=== PATIENT | male | born 1965 | race Caucasian/White ===

== ENCOUNTER 2017-11-12 05:54 | Day surgery (SDC) | payer BC, OTHER ==
[2017-11-03 12:45] VITALS: BMI 23.7
[2017-11-12] MEDS ORDERED: MIDAZOLAM HCL 2 MG/2 ML SINGLE DOSE VIAL ONE (07:09)
[2017-11-12] MEDS ORDERED: DEXAMETHASONE SOD PHOSPHATE/PF 10 MG/ML SDV ONE (07:10)
[2017-11-12] MEDS ORDERED: ROPIVACAINE HCL 0.5% 30ML VIAL ONE (07:10)
--- NOTE | 2017-11-12 07:17 | HP ---
History & Physical Update - History History: No Change - Physical Physical: No Change - Assessment Assessment: No Change - Plan Plan: No Change (full H&P in chart and dated from Dr. Carpio on 10/26/2017)
[2017-11-12] MEDS ORDERED: ceFAZolin SODIUM 1 GM VIAL ONE (07:57)
[2017-11-12] MEDS ORDERED: PROPOFOL 20 ML ONE ×4 (07:58→09:09)
[2017-11-12] MEDS ORDERED: BUPIVACAINE HCL/EPINEPHRINE/PF 30 ML VIAL IJ ONE (08:12)
[2017-11-12] MEDS ORDERED: EPINEPHrine 1:1,000 1 MG/1 ML - 30ML VIAL (INJECTION) ONE (08:30)
[2017-11-12] MEDS ORDERED: oxyCODONE HCL 5 MG TABLET PO PRN ×3 (09:00→09:48)
[2017-11-12] MEDS ORDERED: LACTATED RINGERS SOLUTION 1,000 ML IV SCH (09:00)
[2017-11-12] MEDS ORDERED: ONDANSETRON 4 MG/2 ML VIAL IVPUSH PRN (09:00)
[2017-11-12] MEDS ORDERED: oxyCODONE HCL 10 MG SUSTAINED ACTING TABLET PO ONE (09:48)
--- NOTE | 2017-11-12 09:53 | OP ---
Operative Note - Note: Operative Date: 11/12/17 Pre-Operative Diagnosis: Left Shoulder SLAP lesion, biceps disease, rotator cuff disease Operation: LSA, debridement, open biceps tenodesis Post-Operative Diagnosis: Same as Pre-op Surgeon: Randall Gutierres Anesthesiologist/MULTIMEDIA DESIGNER: Aníbal Bedoya Anesthesia: General Operative Report Dictated: Yes
--- NOTE | 2017-11-12 09:53 | DS ---
Physical Examination Vital Signs: Vital Signs Temperature 97.9 F 11/12/17 06:33 Pulse Rate 78 11/12/17 06:33 Respiratory Rate 16 11/12/17 06:33 Blood Pressure 140/79 11/12/17 06:33 O2 Sat by Pulse Oximetry (%) 100 11/12/17 06:33 Discharge Summary Reason For Visit: LABRAL TEAR, PARTIAL ROTATOR CUFF TEAR, BURSITIS Condition: Good - Instructions Diet, Activity, Other Instructions: Post Operative Instructions: Shoulder Arthroscopy Dr Randall Gutierres 1. Pain following a Shoulder Arthroscopy is variable and can be significant. Some patients will have more pain than others. You have been provided with a prescription for medication that contains a narcotic. You are not allowed to drive while on this medication. Feel free to take medications such as Ibuprofen or Naprosyn in addition to the pain medicine if you do not have any problems with the NSAID class of medications. Please take ASPIRIN 81 mg twice a day for one week to decrease risk of blood clots. 2. Apply ice to the shoulder for 15 minutes every hour. You may continue this for as many days as necessary. 3. You may find sleeping on an incline (reclining chair) to be more comfortable for the first few days. 4. You must remain in your sling at all times except when showering. T 5. You are not to use your arm to reach for anything, lift anything or carry anything until instructed otherwise. 6. You may remove the bandages in 48 hours. You may shower at that point. 7. Place band-aids on the incisions after your shower.Do not put any creams or lotions on the incisions. 8. Please call the office to schedule a visit to have your sutures removed. 9. If for any reason you believe you may have an infection or are concerned, please feel free to call me. I can be reached through our office number 24 hours a day. 10. Please call our office with any questions; we will review the surgical findings during your post-operative visit. Disposition: HOME - Home Medications Comprehensive Discharge Medication List: Ambulatory Orders Ascorbic Acid [Vitamin C -] 1,000 mg PO DAILY 02/28/14 B Complex with Vitamin C [Vitamin B Complex-C] 1 each PO DAILY 02/28/14 Cholecalciferol (Vitamin D3) [Vitamin D3] 2,000 unit PO DAILY 02/28/14 Docosahexanoic Acid/Epa [Fish Oil Softgel] 1 each PO DAILY 02/28/14 Finasteride [Propecia] 1 mg PO DAILY 02/28/14 Garlic 1 each PO DAILY 02/28/14 Magnesium Oxide [Magnesium] 500 mg PO DAILY 02/28/14 [place] 160 mg PO BID 11/03/17
[2017-11-12] MEDS ORDERED: oxyCODONE HCL 10 MG SUSTAINED ACTING TABLET ONE (10:41)
[2017-11-12 11:42] VITALS: TEMP 98.4
[2017-11-12 11:49] VITALS: BP 122/78; PULSE 84
--- NOTE | 2017-11-12 12:35 | SURG ---
[facility] Mgr Note Network Mgr: Shakila Reyes PA-C Date of Service: 11/12/17 Diagnosis: Left Shoulder SLAP lesion, biceps disease, rotator cuff disease Procedure: LSA, debridement, open biceps tenodesi I was present for the entirety of the operative procedure. For further detail, please refer to operative report. Visit type - Case Type Case Type: Scheduled - Emergency Emergency Visit: No - New patient This patient is new to me today: Yes Date on this admission: 11/12/17
--- NOTE | 2017-11-16 14:24 | PATH ---
Surgical Pathology Report Patient Name: PAUL [facility]. Rec. #: [id number] /Age/Gender: 1965 (Age: 52) / M Account: [id number] Location: [facility] Taken: 11/12/2017 Received: 11/12/2017 Reported: 11/16/2017 Physicians: Randall Gutierres M.D. Specimen(s) Received A: LEFT SHOULDER SHAVINGS B: LEFT BICEPS TENDON Clinical History Partial rotator cuff tear, bursitis, labral tear Final Diagnosis A. SHOULDER SHAVINGS, LEFT, ARTHROSCOPY: FRAGMENTS OF BENIGN CARTILAGE, DENSE FIBROCONNECTIVE TISSUE, AND ADIPOSE TISSUE. B. TENDON, BICEPS, LEFT,TENODESIS: FRAGMENTS OF DENSE FIBROCONNECTIVE TISSUE, SYNOVIUM, AND SKELETAL MUSCLE. Electronically Signed Delores Draper M.D. Gross Description A. Received in formalin, labeled "shavings left shoulder," is a 2.8 x 2.5 x 0.3 cm. aggregate of schroeder-yellow soft tissue fragments. A in store representative portion is submitted in one cassette. B. Received in formalin labeled "left biceps tendon," is 11.0 x 0.8 x 0.5 cm portion of tendon. Shop Router sections are submitted in one cassette. 11/15/201711/15/2017
== END 2017-11-12 11:45 | disposition home or self-care (01) ==
LOC: FASU 05:54
PROVIDERS: ATTEND Orthopaedic Surgery
PROC: 0LS20ZZ Reposition Left Shoulder Tendon, Open Approach (ICD-10-PCS; 2017-11-12)
PROC: 0RBK4ZZ Excision of Left Shoulder Joint, Percutaneous Endoscopic Approach (ICD-10-PCS; principal; 2017-11-12 08:29)
DX: M75.101 Unspecified rotator cuff tear or rupture of right shoulder, not specified as traumatic (principal); M72.2 Plantar fascial fibromatosis; S43.432A Superior glenoid labrum lesion of left shoulder, initial encounter; X58.XXXA Exposure to other specified factors, initial encounter; Y93.9 Activity, unspecified; Y92.9 Unspecified place or not applicable
CPT/HCPCS: 88304-TC